=== PATIENT | male | born 1995 | race Caucasian/White ===

== ENCOUNTER 2017-02-19 21:40 | Emergency (ER) | payer SELFPAY ==
[2016-05-13 17:34] VITALS: BP 137/76
== END 2017-02-19 22:45 | disposition left against medical advice (07) ==
LOC: ER 21:40
DX: R42 Dizziness and giddiness (principal); R06.02 Shortness of breath; Z53.21 Procedure and treatment not carried out due to patient leaving prior to being seen by health care provider

== ENCOUNTER 2021-11-02 23:57 | Emergency (ER) | payer SELFPAY ==
[~2021-11-02] VITALS: Ht 185.4 cm; Wt 114.6 kg
--- NOTE | 2021-11-03 00:28 | PHYS DOC ---
Past Medical History Past Medical History: No Pertinent History Additional Past Medical Histor: LEFT EAR INFECTIONS Past Surgical History: Other Additional Past Surgical Histo: TUBES X 3, ADENOIDS, LEFT ARM Smoking Status: Current Every Day Smoker Alcohol Use: Occasionally Drug Use: Marijuana General Adult EDM: Chief Complaint: WRIST PAIN HPI: HPI: Patient is a 26 year old male presenting to the ED today complaining of 10 out of 10 right wrist and right hand pain, symptoms began today, he states he was at the [employer] show, he states he was loud and obnoxious and he got kicked out. He states he punched a brick wall. Patient describes the pain as sharp and constant worse on range of motion. Denies any scaphoid pain. He states most of his pain is on the backside of the wrist and the hand. Denies anything specifically relieving the pain. Review of Systems: Review of Systems: Constitutional: Denies fever or chills. [] Musculoskeletal: Reports right hand and right wrist pain Integument: Denies rash. [] Neurologic: Denies headache, focal weakness or sensory changes. [] ] Psychiatric: Denies depression or anxiety. [] Heart Score: C/O Chest Pain: N/A Risk Factors: Risk Factors: DM, Current or recent (<one month) smoker, HTN, HLP, family history of CAD, obesity. Risk Scores: Score 0 - 3: 2.5% MACE over next 6 weeks - Discharge Home Score 4 - 6: 20.3% MACE over next 6 weeks - Admit for Clinical Observation Score 7 - 10: 72.7% MACE over next 6 weeks - Early Invasive Strategies Allergies: Allergies: Allergies Coded Allergies Type Severity Reaction Last Updated Verified No Known Allergies Allergy Unknown 05/20/14 Yes Physical Exam: PE: Constitutional: Well developed, well nourished, no acute distress, non-toxic appearance. [] Skin: Warm, dry, no erythema, no rash. [] Back: No tenderness, no CVA tenderness. [] Extremities: Right hand and right wrist with no obvious deformity. Soft tissue swelling noted on the right middle finger knuckle, tenderness on palpation of the right middle finger knuckle. No pain or tenderness on the right scaphoid. Pain on the dorsal aspect of the right wrist. Full active as well as passive range of motion to the right hand and fingers. Adequate radial, medial, ulnar sensation to the right fingers. +2 right radial pulse. Cap refill less than 2 seconds to right fingers Neurologic: Alert and oriented X 3, normal motor function, normal sensory function, no focal deficits noted. [] Psychologic: Affect normal, judgement normal, mood normal. [] EKG: EKG: [] Radiology/Procedures: Radiology/Procedures: []PROCEDURE: WRIST 3V RIGHT Exam: XR RT WRIST 3VIEWS, XR HAND_RIGHT 3 VIEWS History: Pain. Punched wall. Comparison: None. Findings: Osseous mineralization is normal. There is fracture of the hamate with approximately 5 mm displacement. Soft tissue swelling about the wrist. No acute osseous abnormality in the hand or fingers. Small metallic foreign body projecting under the middle finger nail. Impression: 1. Displaced fracture of the hamate. Electronically signed by: Anatoliy Johnson MD (11/03/2021 1:32 AM) [facility] DICTATED and SIGNED BY: ANATOLIY JOHNSON MD DATE: 11/03/21129 Course & Med Decision Making: Course & Med Decision Making Pertinent Labs and Imaging studies reviewed. (See chart for details) This is a 26-year-old male patient presenting to the ED today with right hand and right wrist pain that began today after punching a wall. Right hand, right wrist x-rays interpreted by radiologist were noted for there is fracture of the hamate with approximately 5 mm displacement. Patient was placed in a sugar tong splint by the ED RN, neurovascular exam will be done by the physician post splint application. Ice elevation encouraged. Follow-up with Ortho in the course of next week. Peter Disclaimer: Peter Disclaimer: This electronic medical record was generated, in whole or in part, using a voice recognition dictation system. Departure Departure Impression: Primary Impression: Contusion of right hand Qualified Codes: S60.221A - Contusion of right hand, initial encounter Additional Impression: Closed hamate fracture Qualified Codes: S62.141A - Displaced fracture of body of hamate [unciform] bone, right wrist, initial encounter for closed fracture Disposition: HOME / SELF CARE / HOMELESS Condition: STABLE Referrals: NO PCP (PCP) RAZ ZAMUDIO II, MD Call his office on Thursday and set up a follow-up appointment Patient Instructions: Contusion, [id number]-er-[id number], Hamate (Hook) Fracture-SportsMed Additional Instructions: You have fracture of the right wrist hamate bone. [facility] contact the [facility] rthopedic doctor on Thursday morning and set up a follow-up appointment. Try to ice and elevate the extremity. Scripts Naproxen (NAPROXEN) 500 Mg Tablet 1 TAB PO BID for pain, #14 TAB 0 Refills Prov: TAHIR SILVER APRN 11/03/21 Hydrocodone Bit/Acetaminophen (HYDROCODONE-APAP 5-325 ) 1 Tab Tablet 1 TAB PO PRN Q6HRS PRN for PAIN, #6 TAB 0 Refills Prov: TAHIR SILVER APRN 11/03/21 TAHIR SILVER APRN Nov 03, 2021 00:28
[2021-11-03] MEDS ORDERED: NAPROXEN 500 MG TABLET PO STA (00:47)
[2021-11-03] MEDS ORDERED: HYDROcodone/APAP 5/325MG 1 TAB TABLET PO ONE (01:00)
--- NOTE | 2021-11-03 01:34 | RAD ---
Exam: XR RT WRIST 3VIEWS, XR HAND_RIGHT 3 VIEWS History: Pain. Punched wall. Comparison: None. Findings: Osseous mineralization is normal. There is fracture of the hamate with approximately 5 mm displacemen t. Soft tissue swelling about the wrist. No acute osseous abnormality in the hand or fingers. Small m etallic foreign body projecting under the middle finger nail. Impression: 1. Displaced fracture of the hamate. Electronically signed by: Anatoliy Johnson MD (11/03/2021 1:32 AM) [facility]
[2021-11-03 02:03] VITALS: BP 129/83
[2021-11-03] MEDS ORDERED: NAPR-514 PO (02:10)
[2021-11-03] MEDS ORDERED: HYDR-2761 PO (02:10)
== END 2021-11-03 02:37 | disposition home or self-care (01) ==
LOC: ER 23:57
DX: S62.141A Displaced fracture of body of hamate [unciform] bone, right wrist, initial encounter for closed fracture (principal); S60.221A Contusion of right hand, initial encounter; F17.200 Nicotine dependence, unspecified, uncomplicated; W22.01XA Walked into wall, initial encounter; Y93.89 Activity, other specified; Y92.89 Other specified places as the place of occurrence of the external cause; Y99.8 Other external cause status
CPT/HCPCS: 73110; 73130; 99285-25